=== PATIENT | male | born 1965 | race Caucasian/White ===

== ENCOUNTER → 2023-09-20 | Outpatient (CLI) | payer BC ==
--- NOTE | 2023-09-20 17:11 | US ---
EXAMINATION TYPE: US bladder DATE OF EXAM: 09/20/2023 COMPARISON: NONE CLINICAL INDICATION: Male, 58 years old with history of R35.0 FREQUENCY OF MICTURITION; Frequent urin ation. TECHNIQUE: Multiple sonographic images of the bladder are obtained. FINDINGS: EXAM MEASUREMENTS: Post Void Residual Volume: 14.23 mL Color Doppler performed to assess ureteral jets. Bilateral Jets seen: Yes Normal Post Void Residual (less than 50ml): Yes IMPRESSION: Increased post void bladder volume of 14 mL falls within normal limits.
== END | disposition home or self-care (01) ==
LOC: RADUSWWP 08:51
PROVIDERS: ATTEND Family Medicine
DX: R35.0 Frequency of micturition (principal)
CPT/HCPCS: 76857